=== PATIENT | female | born 2000 | race Caucasian/White ===

== ENCOUNTER 2021-11-16 08:52 | Emergency (ER) | payer SELFPAY ==
[2021-11-16] MEDS ORDERED: Ondansetron PF 4 MG/2 ML Vial ONE (09:21)
[2021-11-16] MEDS ORDERED: Sodium Chloride 0.9% 1,000 ML ONE (09:21)
[2021-11-16] MEDS ORDERED: Morphine 4 MG/ML VIAL ONE (09:59)
[2021-11-16 10:01] LABS: Bilirubin Negative (Negative); Blood, Urine Small (Negative); Clarity Clear (Clear); Glucose, Urine (Dipstick) Negative (Negative); Ketone, Urine Negative (Negative); Leukocyte Negative (Negative); Nitrite Negative (Negative); Protein, Urine (Dipstick) Negative (Neg-Trace); Specific Gravity, Urine 1.025 (1.005-1.030); Urobilinogen 0.2 mg/dL (Less than 2)
[2021-11-16 10:05] LABS: Pregnancy Test - Urine (BHCG) Negative (Negative); Pregu Control Background? CLEAR/WHITE (CLR/WHITE); Pregu Control Bar Appear? YES (CONTROL BAR); Specific Gravity 1.025 (1.002-1.036)
[2021-11-16 10:06] LABS: #Eosinphils 0.1 thou/uL (0.0-0.7); #Lymphocytes 0.8 thou/uL (1.20-3.40); #Monocytes 0.6 thou/uL (0.11-0.59); #Neutrophils 1.3 thou/uL (1.40-6.50); %Eosinophils 0.8 % (0.0-10.0); %Lymphocytes 27.9 % (21.0-51.0); %Monocytes 22.8 % (0.0-10.0); %Neutrophils 45.5 % (42.0-75.0); Hemoglobin 14.5 g/dL (12.0-16.0); Mean Corpuscular HGB CONC 33.3 g/dL (32.0-36.0); Mean Corpuscular Hemoglobin 32.5 pg (27.0-31.0); Mean Corpuscular Volume 97.6 fL (78.0-98.0); Mean Platelet Volume 8.6 fL (7.4-10.4); Platelet Count 198 thou/uL (130-400); RBC Distribution Width 10.2 % (11.5-14.5); Red Blood Cell (RBC) Count 4.46 mill/uL (4.20-5.40); White Blood Cell (WBC) Count 2.7 thou/uL (4.8-10.8)
[2021-11-16 10:13] LABS: RBC/HPF 0-3 HPF (0-3); WBC/HPF 0-3 HPF (0-3)
[2021-11-16 10:14] LABS: Bacteria/HPF None Seen HPF (None Seen)
[2021-11-16 10:19] LABS: AST (SGOT) 17 U/L (5-34); Albumin 4.5 g/dL (3.5-5.0); Alkaline Phosphatase 58 U/L (40-110); Anion Gap 12 mmol/L (10-20); Calc. Creatinine Clearance 0 mL/min (70-130); Calcium 9.4 mg/dL (7.8-10.44); Carbon Dioxide 26 mmol/L (22-29); Chloride 107 mmol/L (98-107); Glucose 93 mg/dL (70-105); Lipase 29 U/L (8-78); Potassium 3.6 mmol/L (3.5-5.1); Protein, Total 7.5 g/dL (6.0-8.3); Sodium 141 mmol/L (136-145)
[2021-11-16 11:09] LABS: BUN (Urea Nitrogen) 6 mg/dL (7.0-18.7)
[2021-11-16 11:10] LABS: ALT (SGPT) 13 U/L (8-55); Bilirubin, Total 0.7 mg/dL (0.2-1.2); Magnesium 1.6 mg/dL (1.6-2.6)
== END 2021-11-16 10:54 | disposition home or self-care (01) ==
LOC: NAV ERS 08:52
DX: R11.2 Nausea with vomiting, unspecified (principal); R19.7 Diarrhea, unspecified
CPT/HCPCS: 80053; 81003; 81015; 81025; 83690; 83735; 85025; 94760; 96374; 96375; J2270; J2405; J7050